=== PATIENT | female | born 1985 | race Caucasian/White ===

== ENCOUNTER 2020-08-23 13:02 | Inpatient (IN) | payer OTHER ==
[~2020-08-23] VITALS: Ht 157.5 cm; Wt 71.2 kg
[2020-08-23] MEDS ORDERED: PRENATAL TABLE1 EAC1 PO (13:17)
== END 2020-08-26 16:12 | disposition home or self-care (01) | DRG 788 ==
LOC: LDR 13:02 → OB/GYN 20:06
PROVIDERS: ADMIT Obstetrics & Gynecology; ATTEND Obstetrics & Gynecology
PROC: 4A1HXFZ Monitoring of Products of Conception, Cardiac Rhythm, External Approach (ICD-10-PCS; 2020-08-23)
PROC: 10D00Z1 Extraction of Products of Conception, Low, Open Approach (ICD-10-PCS; principal; 2020-08-23 20:00)
DX: O65.5 Obstructed labor due to abnormality of maternal pelvic organs (principal); O34.211 Maternal care for low transverse scar from previous cesarean delivery; O99.892 Other specified diseases and conditions complicating childbirth; D47.3 Essential (hemorrhagic) thrombocythemia; Z3A.39 39 weeks gestation of pregnancy; Z37.0 Single live birth; Z20.822 Contact with and (suspected) exposure to COVID-19